=== PATIENT | male | born 1960 | race Caucasian/White ===

== ENCOUNTER 2018-06-07 17:34 | Emergency (ER) | payer OTHER ==
[2018-06-07 17:47] VITALS: BP 176/99; PULSE 89; RESP 18; TEMP 98.2
--- NOTE | 2018-06-07 19:30 | ED ---
General Adult HPI - General Chief complaint: Recheck/Abnormal Lab/Rx Stated complaint: Cancer pt/med refill Time Seen by Provider: 06/07/18 18:18 Source: patient, RN notes reviewed Mode of arrival: ambulatory Limitations: no limitations - History of Present Illness Initial comments: 58-year-old male with a past medical history of brain cancer presents to the emergency department for medication refill. Patient states he had brain surgery "sometime right before [place]." Patient states he had his surgery done at [facility]. Patient states he was staying at his son's house but they were "watching over him to closely" so he left. He states his son lives in [facility]. He states his medications were left there but he does not want to go back to get them. Patient states he does not know what medications he was on. He states he is not sure what they are for. He is not sure of his surgeon's name. He states he thinks he had 4 of them. He had these filled at the pharmacy at the hospital when he left. He states he did not want to drive back to this hospital for the medications and thought we could help him figure out what medications he was on and prescribe them. Patient has no other complaints at this time including shortness of breath, chest pain, abdominal pain, nausea or vomiting, headache, or visual changes. - Related Data Home Medications Medication Instructions Recorded Confirmed Unable To Assess [Unable to Assess] 06/07/18 06/07/18 Allergies Allergy/AdvReac Type Severity Reaction Status Date / Time acetaminophen Allergy Hallucinati Verified 06/07/18 17:47 [From Tylenol-Codeine #3] ons codeine Allergy Hallucinati Verified 06/07/18 17:47 [From Tylenol-Codeine #3] ons Review of Systems ROS Statement: Those systems with pertinent positive or pertinent negative responses have been documented in the HPI. ROS Other: All systems not noted in ROS Statement are negative. Past Medical History Past Medical History: Cancer Additional Past Medical History / Comment(s): brain cancer History of Any Multi-Drug Resistant Organisms: None Reported Additional Past Surgical History / Comment(s): brain surgery 05/2018 Past Psychological History: No Psychological Hx Reported Smoking Status: Current every day smoker Past Alcohol Use History: None Reported Past Drug Use History: None Reported General Exam Limitations: no limitations General appearance: alert, in no apparent distress Head exam: Present: normocephalic, normal inspection, other (patient has incision from brain surgery with intact giovanna, no erythema drainage or evidence of infection) Eye exam: Present: normal appearance, PERRL, EOMI. Absent: scleral icterus, conjunctival injection, periorbital swelling ENT exam: Present: normal exam, mucous membranes moist Neck exam: Present: normal inspection, full ROM. Absent: tenderness, meningismus, lymphadenopathy Respiratory exam: Present: normal lung sounds bilaterally. Absent: respiratory distress, wheezes, rales, rhonchi, stridor Cardiovascular Exam: Present: regular rate, normal rhythm, normal heart sounds. Absent: systolic murmur, diastolic murmur, rubs, gallop, clicks GI/Abdominal exam: Present: soft, normal bowel sounds. Absent: distended, tenderness, guarding, rebound, rigid Neurological exam: Present: alert, oriented X3, CN II-XII intact Psychiatric exam: Present: normal affect, normal mood Course Vital Signs 06/07/18 17:42 Temperature 98.2 F Pulse Rate 89 Respiratory 18 Rate Blood Pressure 176/99 O2 Sat by Pulse 99 Oximetry Medical Decision Making - Medical Decision Making 58-year-old male presents to the emergency department for a chief complaint of medication refill. Patient had brain surgery apparently about 2 weeks ago. He states he is supposed to be on 4 medications that he is unsure of what these are or what they're for. He is unsure of his surgeon's name. Patient states he left his pills at his son's house in [facility] but does not want to drive back. He states he did not want to drive to [place] to the hospital where his surgery was done to have these refilled. He states he thought we could figure out what medications he was on. Did attempt to find his medications. fiber optic technician Sintia called the [facility] where he had these prescriptions filled but they are closed. He has not had them filled any outpatient pharmacies. She also attempted to call the doctor's office but they were not open. At this time I'm unable to find what medications patient was on despite best efforts. Patient agrees he will have to go back to [facility] for his medications. He will return if he has any worsening symptoms. Disposition Clinical Impression: Encounter for medication refill Disposition: HOME SELF-CARE Condition: Good Instructions: Medicine Refill (ED) Additional Instructions: Please follow-up with your doctor or surgeon for refill of these prescriptions as soon as possible. Try to contact [facility] as discussed for a list of these medications. Return if you have any worsening symptoms. Is patient prescribed a controlled substance at d/c from ED?: No Referrals: Nonstaff,Physician [Primary Care Provider] - 1-2 days Time of Disposition: 19:30
== END 2018-06-07 22:28 | disposition home or self-care (01) ==
LOC: EC 17:34
DX: Z76.0 Encounter for issue of repeat prescription (principal); F17.200 Nicotine dependence, unspecified, uncomplicated; Z88.5 Allergy status to narcotic agent; Z88.6 Allergy status to analgesic agent; Z85.841 Personal history of malignant neoplasm of brain; Z98.890 Other specified postprocedural states
CPT/HCPCS: 99281